=== PATIENT | female | born 1945 | race Caucasian/White ===

== ENCOUNTER → 2017-06-09 | Outpatient (CLI) | payer MEDICARE ==
[~2017-06-09] MED LIST: CEFTIN500 MG PO; FISH OIL500 MG PO; FLAGYL250 MG PO; FUROSEMIDE INJ 10 MG/ML 4 ML VIAL ONE; GLUCOPHAGE1000 MG PO; LEVAQUIN500 MG PO; LEVOTHROID137 MCG PO; LIPITOR20 MG PO; METFORMIN HCL500 MG PO; MULTIVITAMIN PO; NIACIN500 M2 PO; NORCO 10MG-325MG1 EA PO; OSCAL PO; PANTOPRAZOLE SO40 MG PO
--- NOTE | 2017-06-09 23:27 | Diagnostic Imaging Report ---
EXAM: RENAL SCAN W/LASIX DATE: 06/09/2017 12:00 AM Time stamp on exam: 1155 INDICATION: Unspecified hydronephrosis COMPARISON: CT of the abdomen and pelvis August 20, 2015 and renal scan with Lasix September 22, 2015 Radiopharmaceutical: Tc-99m MAG3 10.1 mCi Report: After intravenous administration of the radiopharmaceutical, dynamic images of the kidneys were obtained through 40 minutes. Lasix 40 mg was administered at 10 minutes post injection of tracer. Left Kidney: Perfusion to the left kidney is prompt. Normal renal shape. Extraction of tracer from the blood pool by the renal parenchyma is normal. Incidental small extrarenal pelvis. Clearance of tracer from the renal parenchyma is prompt. Drainage of tracer is prompt and adequate prior to the administration of Lasix. No significant stasis of tracer in the left ureter. Right Kidney: Perfusion to the right kidney is prompt. Normal renal shape. Extraction of tracer from the blood pool by the renal parenchyma is normal. Clearance of tracer from the renal parenchyma is prompt. Incidental prominent extrarenal pelvis. Drainage is adequate prior to the administration of Lasix. There is no stasis of tracer in the left ureter. The T-half life was slightly delayed compared to the left, however still within normal limits. The differential renal function is left kidney 55% and right kidney 45% (in 2016 left kidney 59%, right kidney 41%). Impression: 1. The function of the left kidney is normal. No physiologically significant obstruction. 2. The function of the right kidney is normal. As previously described, there is a prominent extrarenal pelvis with some mild stasis of the tracer but with clearance after Lasix administration within normal limits. No physiologically significant obstruction. 3. Differential renal function left kidney 55% and right kidney 45%. Signed by: Dr. Kristin Mathias M.D. on 06/09/2017 11:23 PM
== END ==
LOC: NM 10:33
PROVIDERS: ATTEND Urology
DX: N13.30 Unspecified hydronephrosis (principal)
CPT/HCPCS: 78708; A9562; J1940

== ENCOUNTER → 2017-09-26 | Outpatient (CLI) | payer MEDICARE ==
[~2017-09-26] MED LIST changes: -FUROSEMIDE INJ 10 MG/ML 4 ML VIAL ONE
--- NOTE | 2017-09-26 19:04 | Diagnostic Imaging Report ---
PROCEDURE:X-RAY ABDOMEN - KUB COMPARISON:[facility], CT, CT ABDOMEN/PELVIS WO, 12/10/2012, 15:31. INDICATIONS:HISTORY OF RENAL STONES. NO COMPLAINTS AT THIS TIME FINDINGS: There is a non-obstructed bowel-gas pattern. No calcifications project over the renal shadows, expected course of the ureters or bladder. Stable pelvic phleboliths. There are no acute osseous abnormalities. Degenerative disc changes in lower lumbosacral spine. Soft tissues are grossly unremarkable. Calcified injection granulomas project over the iliac crests bilaterally The lung bases are clear. CONCLUSION: No radiopaque densities project over the genitourinary system. Lonnie Ospina M.D. Dictated by: Lonnie Ospina M.D. on 09/26/2017 at 19:05 Electronically approved by: Lonnie Ospina M.D. on 09/26/2017 at 19:05
== END ==
LOC: RAD 14:35
PROVIDERS: ATTEND Urology
DX: N20.0 Calculus of kidney (principal)
CPT/HCPCS: 74018

== ENCOUNTER → 2019-12-25 | Outpatient (CLI) | payer MEDICARE ==
[~2019-12-25] MED LIST changes: +FUROSEMIDE INJ 10 MG/ML 4 ML VIAL ONE
--- NOTE | 2019-12-25 13:14 | Diagnostic Imaging Report ---
EXAM: ABDOMEN-1VIEW (KUB) DATE: 12/25/2019 12:45 PM INDICATION: Unspecified hydronephrosis, renal calculus COMPARISON: None FINDINGS: Bowel gas pattern is nonobstructive. No pathologically dilated loops of bowel are identified. Bowel gas partially obscures the renal shadows. No radiographically evident renal calculi are appreciated. Suspected phleboliths noted within the pelvis. No acute osseous abnormality is identified. IMPRESSION: No radiographically evident urinary stone appreciated. Signed by: Dr. Feroz Degroot MD on 12/25/2019 1:10 PM
--- NOTE | 2019-12-26 23:32 | Diagnostic Imaging Report ---
Renal Scan with Lasix Washout Clinical information: Unspecified hydronephrosis Comparison: Most recent prior renal scan with Lasix 06/09/2017 Technique: Following intravenous administration of 10 mCi of Tc-99m MAG3, dynamic images of the kidneys in the posterior projection were obtained through 40 minutes. Lasix 40 mg was administered intravenously at 10 minutes post injection of the tracer. Report: Left kidney: Perfusion of the left kidney is prompt. The kidney has a reniform shape although overall reduced slightly in size. Extraction of tracer from the blood pool is normal. Clearance of tracer from the renal parenchyma is prompt. The pelvicalyceal system is not dilated. Physiologic pooling of tracer is seen within the pelvicalyceal system. Drainage of tracer from the pelvicalyceal system is adequate prior to administration of Lasix. No significant stasis of tracer is seen within the left ureter. Right kidney: Perfusion to the right kidney is prompt. The right kidney has a reniform shape but is overall slightly reduced in size. Extraction of tracer by the renal parenchyma is normal. Clearance of tracer from the renal parenchyma is prompt. The pelvicalyceal system is not dilated although the extra-renal pelvis is prominent. Physiologic pooling of tracer is seen within the pelvicalyceal system. Drainage of tracer from the pelvicalyceal system is nearly adequate prior to administration of Lasix. Washout of tracer from the pelvicalyceal system following administration of Lasix is rapid with a T-1/2 of 10 minutes (normal less than 15 minutes). No significant stasis of tracer is seen within the right ureter. Differential renal function: The left kidney contributes 56% of total renal function and the right kidney contributes 44% (normal 43-57%), previously left kidney 55% and right kidney 45%. Impression: 1. The left kidney is slightly reduced in size, likely normal for age. The function of the left kidney is generally normal. No hydronephrosis is present. No physiologically significant obstruction of the renal collecting system is present. No interval change in appearance of the kidney, drainage pattern or differential function compared to the prior exam. 2. The right kidney is slightly reduced in size, likely normal for age. The function of the right kidney is generally normal. No hydronephrosis is present. No physiologically significant obstruction of the renal collecting system is present. No interval change in appearance of the kidney, drainage pattern or differential function compared to the prior exam. 3. The differential renal function is preserved. Signed by: Dr. Gertrudis Breen M.D. on 12/26/2019 7:49 PM
== END ==
LOC: NM 12:42
PROVIDERS: ATTEND Urology
DX: N13.30 Unspecified hydronephrosis (principal)
CPT/HCPCS: 74018; 78708; A9562; J1940

== ENCOUNTER → 2020-10-28 | Outpatient (CLI) | payer MEDICARE | LOC: NM 14:56 | PROVIDERS: ATTEND Urology | DX: N20.0 Calculus of kidney (principal) | CPT/HCPCS: 74018; 78708; A9562; J1940 ==

== ENCOUNTER → 2021-10-27 | Outpatient (CLI) | payer MEDICARE ==
[~2021-10-27] MED LIST changes: -FUROSEMIDE INJ 10 MG/ML 4 ML VIAL ONE
== END ==
LOC: RAD 15:42
PROVIDERS: ATTEND Urology
DX: N20.0 Calculus of kidney (principal)
CPT/HCPCS: 74018